=== PATIENT | female | born 1975 | race Caucasian/White ===

== ENCOUNTER 2021-06-20 08:12 | Emergency (ER) | payer OTHER ==
[~2021-06-20] VITALS: Ht 165.1 cm; Wt 112.5 kg
[~2021-06-20 08:12] MED LIST: ALBU90I INH; CODGUAEL PO; PROZAC
== END 2021-06-20 10:56 | disposition home or self-care (01) ==
LOC: ER 08:12
DX: M79.672 Pain in left foot (principal); Z91.040 Latex allergy status; Z79.899 Other long term (current) drug therapy
CPT/HCPCS: 73630; 96372; 99283-25; J1885

== ENCOUNTER 2021-07-01 17:32 | Emergency (ER) | payer OTHER ==
[~2021-07-01] VITALS: Ht 165.1 cm; Wt 112.5 kg
== END 2021-07-01 21:12 | disposition home or self-care (01) ==
LOC: ER 17:32
DX: M79.672 Pain in left foot (principal); F17.210 Nicotine dependence, cigarettes, uncomplicated; E03.9 Hypothyroidism, unspecified; K21.9 Gastro-esophageal reflux disease without esophagitis; I10 Essential (primary) hypertension
CPT/HCPCS: 73620; 99283-25